=== PATIENT | male | born 1965 ===

== ENCOUNTER 2022-07-10 | Outpatient (RCR) | payer OTHER, SELFPAY | END 2022-07-26 23:59 | disposition home or self-care (01) | LOC: TOT | PROVIDERS: Family Provider Internal Medicine; PCP Internal Medicine; Visit Provider Family Medicine | DX: R53.1 Weakness (principal) | CPT/HCPCS: 97166; 97530 ==

== ENCOUNTER 2022-07-27 06:00 | Outpatient (RCR) | payer OTHER, SELFPAY | END 2022-08-26 23:59 | disposition home or self-care (01) | LOC: TOT 06:00 | PROVIDERS: PCP Internal Medicine; Visit Provider Family Medicine | DX: R53.1 Weakness (principal) | CPT/HCPCS: 97110; 97165; 97530 ==

== ENCOUNTER 2022-08-27 06:00 | Outpatient (RCR) | payer OTHER, SELFPAY | END 2022-09-25 23:59 | disposition home or self-care (01) | LOC: TOT 06:00 | PROVIDERS: PCP Internal Medicine; Visit Provider Family Medicine | DX: R53.1 Weakness (principal) | CPT/HCPCS: 97110; 97140 ==

== ENCOUNTER 2022-09-26 06:00 | Outpatient (RCR) | payer OTHER, SELFPAY | END 2022-10-26 23:59 | disposition home or self-care (01) | LOC: TOT 06:00 | PROVIDERS: PCP Internal Medicine; Visit Provider Family Medicine | DX: R53.1 Weakness (principal) | CPT/HCPCS: 97110; 97140 ==

== ENCOUNTER → 2022-11-04 15:27 | Outpatient (BNVA) | payer MEDICAID, SELFPAY | PROVIDERS: PCP Family Medicine; Visit Provider Family Medicine | DX: M25.531 Pain in right wrist (principal); M19.031 Primary osteoarthritis, right wrist | CPT/HCPCS: 73110 ==